=== PATIENT | male | born 1950 | race Caucasian/White ===

== ENCOUNTER 2024-05-21 10:31 | Outpatient (CLI) | payer MEDICARE, OTHER, SELFPAY ==
--- NOTE | ~2024-05-21 | CT_ITS ---
EXAMINATION: CT diagnostic chest w con DATE: 05/21/2024 11:12 INDICATION: Pneumonia TECHNIQUE: Computed tomography (CT) of the chest was performed with 100 mL Omnipaque-350 intravenous contrast. Additional 3D reconstructions utilizing coronal maximum intensity projection (MIP) were per formed. Automated exposure control and iterative reconstruction technique were employed. The dose-jay gth product was 477.36 mGy-cm. COMPARISON: None FINDINGS: Mild apical emphysema. Mild tree-in-bud and groundglass opacities at the periphery of a wedge-shaped region of consolidation in the anterior segment of the right upper lobe. Within the region of consoli dation is a 3.8 x 3.3 cm cavitary lesion with internal layering air-fluid level suspicious for pulmon luis abscess in the setting of pneumonia. Small calcified right lower lobe nodule along with calcified right hilar and mediastinal lymph nodes consistent with old granulomatous disease. No pulmonary mateo a or pleural effusion. Heart size is normal. At the right coronary artery calcific lesion. Prominent aortic valve calcification. Thoracic aorta is normal in caliber with no dissection. Although not perf ormed as a dedicated pulmonary embolism protocol there is good contrast opacification of the pulmonar y arteries demonstrating no pulmonary embolism. No pathologically enlarged thoracic diffuse lymphaden opathy. Diffuse hepatic steatosis. Mild thoracic spondylosis with bridging osteophytes at multiple le vels consistent with diffuse idiopathic skeletal hyperostosis (DISH). IMPRESSION: 1. Air-fluid level within a cavitary lesion within a region of consolidation in the intersegment righ t upper lobe concerning for pneumonia with secondary pulmonary abscess. Differential would include le ss likely malignancy and would recommend continued radiographic follow-up to document resolution or a ppropriate evolution. Reviewed, dictated and finalized at location B. IMPRESSION: 1. Air-fluid level within a cavitary lesion within a region of consolidation in the intersegment right upper lobe concerning for pneumonia with secondary pulm onary abscess. Differential would include less likely malignancy and would sofy mmend continued radiographic follow-up to document resolution or appropriate ev olution.
[2024-05-21 11:03] LABS: Estimated Glomerular Filt Rate > 60
== END 2024-05-21 10:32 | disposition home or self-care (01) ==
PROVIDERS: PCP Family Medicine; Visit Provider Nurse Practitioner Family
DX: J18.9 Pneumonia, unspecified organism (principal)
CPT/HCPCS: 71260; Q9967

== ENCOUNTER 2025-03-21 12:33 | Outpatient (CLI) | payer MEDICARE, OTHER, SELFPAY ==
--- OUTSIDE RECORDS SUMMARY | 2025-03-21 12:40 | XMS_ITS | Encounter Summary ---
Author Organization [facility] Address [facility] [place] [address] Care Team Providers Care Nitrate Operator Name Role Phone Wade Haq MD Primary Care Provider Unavailabl Christophe Gomez MD Unavailable Unavailab Murphy Rosario MD Primary Care Provider [phone] Roz Butler MD Primary Care Provider Travis Avila MD Unavailable [phone] Encounter Details Date Type Department Care Team (Late st Contact Info) Description 05/24/2016 Abstract [facility] [address] [place] [address] Christophe Vargas MD Social History Tobacco Use Types Packs/Day Years Used Date Smoking Tobacco: Former Sex and Gender Information Value Date Recorded Sex Assigned at Male 09/20/2024 2:13 PM [employer]AIAKO [employer]URA [employer]UAR[employer] Legal Sex Male 9:12 AM CDT Gender Identity Not on file Sexual Orientation Not on file documented as of this encounter Plan of Treatment Upcoming Encounters Date Type Department Care Team (Late st Contact Info) Description 12/22/2025 11:45 AM CDT Office Visit [facility] [place] [address] Travis Avila MD [address] [phone] documented as of this encounter Visit Diagnoses Not on filedocumented in this encounter Care Teams Nitrate Operator Relationship Specialty Start Date End Date Wade Haq MD PCP - General INTERNAL MEDICINE 05/03/16 06/06/16 Murphy Fox MD PCP - General FAMILY PRACTICE 06/07/16 08/08/19 Roz Butler MD PCP - General FAMILY PRACTICE 08/09/19 Christophe Vargas MD CARDIOVASCULAR DISEASE 05/03/16 08/31/19 Travis Avila MD [facility]. [id number] [place] [address] [employer] CARDIOVASCULAR DISEASE 08/19/19 documented as of this encounter
--- OUTSIDE RECORDS SUMMARY | 2025-03-21 12:41 | XMS_ITS | Patient Health Record ---
Author Organization [facility] dicine Address [address] [place] [address] Care Team Providers Care Swing Tender Name Role Phone Dr. Roz Butler Primary Care Provider [phone] Migration, Provider Unavailable Unavailable Allergies Allergen (clinical drug ingredient) Drug/Non Drug Allergy documented on EMR Reaction Allergy Type Onset Date Status Substance with penicillin structure and antibacterial mechanism of action (substance) Penicillins Unknown Drug Allergy 06/01/2021 Active Results Component Value Reference Range Flag Notes Sputum Culture and Gram Stai n Reviewed date:05/24/2024 12:00:00 AM Interpretation: Performing Lab: Notes/Report: C Sputum See Below CBC w/ Diff Reviewed date:07/14/2024 12:00:00 AM Interpretation: Performing Lab: Notes/Report: Baso Absolute 0.1 x10*3/mcL Basophil Auto 0.6 % Eos Absolute 0.1 x10*3/mcL Eosinophil Auto 0.7 % Hct 46.7 % Hgb 16.2 g/dL Lymph Absolute 1.7 x10*3/mcL Lymph Auto 20.6 % MCH 31.3 pg MCHC 34.7 g/dL MCV 90.2 fL [place] Absolute 0.5 x10*3/mcL [place] Auto 5.4 % MPV 8.0 fL Neutro Absolute 6.2 x10*3/mcL Neutro Auto 72.7 % Platelets 197 K/mcL RBC 5.18 x10*6/mcL RDW 14.7 % WBC 8.5 K/mcL Comprehensive Metabolic Pane l Reviewed date:07/14/2024 12:00:00 AM Interpretation: Performing Lab: Notes/Report: Albumin Lvl 3.8 g/dL Albumin/Globulin Ratio 1.2 Alk Phos 74 unit/L ALT 46 unit/L ANION GAP 7.8 mmol/L AST 41 unit/L Bilirubin Total 1.1 mg/dL BUN 21 mg/dL Calcium Lvl 9.3 mg/dL Chloride Lvl 106 mmol/L CO2 25 mmol/L Creatinine Lvl 1.03 mg/dL eGFR CKD-EPI 75 mL/min/1.73 m2 Glucose Lvl 128 mg/dL Potassium Lvl 4.0 mmol/L Protein Total 6.9 g/dL Sodium Lvl 139 mmol/L Hemoglobin A1c {Glycosylated } Reviewed date:07/14/2024 12:00:00 AM Interpretation: Performing Lab: Notes/Report: eAvg Glucose 105 mg/dL Hemoglobin A1c 5.3 % Lipid Panel {Chol, Trig, HDL , LDL} Reviewed date:07/14/2024 12:00:00 AM Interpretation: Performing Lab: Notes/Report: Chol/HDL 3 Cholesterol Total 107 mg/dL Coronary Risk 32 % HDL 34 mg/dL LDL N/A TRIG>400 mg/dL NON HDL CHOLESTEROL 73 mg/dL Triglycerides 409 mg/dL Magnesium Reviewed date:07/14/2024 12:00:00 AM Interpretation: Performing Lab: Notes/Report: Magnesium Lvl 1.9 mg/dL T4 Free Reviewed date:07/14/2024 12:00:00 AM Interpretation: Performing Lab: Notes/Report: T4 Free 0.69 ng/dL Thyroid Stimulating Hormone Reviewed date:07/14/2024 12:00:00 AM Interpretation: Performing Lab: Notes/Report: TSH 1.83 mcIU/mL Vitamin B12 Reviewed date:07/14/2024 12:00:00 AM Interpretation: Performing Lab: Notes/Report: Vitamin B12 Lvl 969 pg/mL Hepatitis C antibody Reviewed date:09/22/2024 05:30:42 PM Interpretation: Performing Lab: Notes/Report: Hep C Antibody negative Cologuard Reviewed date:09/22/2024 05:31:33 PM Interpretation: Performing Lab: Notes/Report: Cologuard negative Ultrasound : Abdomen Reviewed date:12/29/2024 10:54:50 AM Interpretation: Performing Lab: Notes/Report: X ray : Hand, left Reviewed date:12/16/2024 03:23:22 PM Interpretation: Performing Lab: Notes/Report: Chest X-ray PA and lateral Reviewed date:10/12/2024 04:30:48 PM Interpretation: Performing Lab: Notes/Report: Hemoglobin A1c {Glycosylated } Reviewed date:12/08/2024 09:37:05 PM Interpretation: Performing Lab: Notes/Report: Test Performed by: [place] [address] Career Services Representative: Willie Hernández DO Hemoglobin A1c 5.7 <=6.4 % Hemoglobin A1C < 5.7% = Normal 5.7-6.4% = Increased risk for future diabetes >=6.5% = Diabetes eAvg Glucose 117 <=117 mg/dL eAG Reference Range <117 mg/dL = Normal 117-137 mg/dL = Increased Risk For Future Diabetes >137 mg/dL = Diabetes T4 Free Reviewed date:12/08/2024 09:37:05 PM Interpretation: Performing Lab: Notes/Report: Test Performed by: [place] [address] Career Services Representative: Willie Hernández DO T4 Free 0.68 0.60-1.70 ng/dL CBC w Auto Diff Reviewed date:12/08/2024 09:37:05 PM Interpretation: Performing Lab: Notes/Report: Test Performed by: [place] [address] Career Services Representative: Willie Hernández DO WBC 5.8 4.0-11.7 K/mcL RBC 5.58 4.28-5.56 x10*6/mcL H Hgb 17.2 13.0-17.0 g/dL H Hct 50.2 38.1-48.9 % H MCV 89.9 83.4-98.1 fL MCH 30.8 27.0-34.2 pg MCHC 34.2 31.8-35.3 g/dL RDW 13.8 12.0-16.4 % Platelets 161 149-393 K/mcL MPV 7.8 7.0-11.0 fL Neutro Auto 61.2 45.3-79.0 % Lymph Auto 26.6 11.8-45.9 % [place] Auto 9.1 4.4-12.0 % Eosinophil Auto 2.2 0.0-6.3 % Basophil Auto 0.9 0.2-1.6 % Neutro Absolute 3.5 2.4-8.4 x10*3/mcL Lymph Absolute 1.5 0.8-3.7 x10*3/mcL [place] Absolute 0.5 0.3-1.1 x10*3/mcL Eos Absolute 0.1 0.0-0.5 x10*3/mcL Baso Absolute 0.1 0.0-0.1 x10*3/mcL Comprehensive Metabolic Pane l Reviewed date:12/08/2024 09:37:05 PM Interpretation: Performing Lab: Notes/Report: Test Performed by: [place] [address] Career Services Representative: Willie Hernández DO Glucose Lvl 106 74-109 mg/dL ADA risk stratification for diabetes <100 mg/dL = Normal 100-125 mg/dL = Increased risk for future diabetes >=126 mg/dL = Diabetes, if on more than one testing occasion BUN 18 7-25 mg/dL Creatinine Lvl 0.85 0.70-1.30 mg/dL eGFR CKD-EPI 90 >=90 mL/min/1.73 m2 The CKD-EPI equation is validated in individuals 18 years of age and older. It is less accurate in patients with extremes of muscle mass, restriction of dietary protein, ingestion of creatine, extra-renal metabolism of creatinine, or treatment with medications that affect renal tubular creatinine secretion. GFR Categories in Chronic Kidney Disease (CKD) GFR GFR (mL/min/1.73 Category: square meters): Interpretation: G1 90 or greater Normal or high* G2 60-89 Mild decrease* G3a 45-59 Mild to moderate decrease G3b 30-44 Moderate to severe decrease G4 15-29 Severe decrease G5 14 or less Kidney failure *In the absence of evidence of kidney damage, neither GFR category G1 nor G2 fulfill the criteria for CKD (Kidney Int Suppl 2013;3:1-150) Calcium Lvl 9.0 8.6-10.3 mg/dL Sodium Lvl 140 136-145 mmol/L Potassium Lvl 4.2 3.5-5.1 mmol/L Chloride Lvl 107 98-107 mmol/L CO2 28 21-31 mmol/L Anion Gap 5.2 <=16.0 mmol/L Alk Phos 80 34-104 unit/L Bilirubin Total 1.1 0.3-1.0 mg/dL H Albumin Lvl 4.1 3.5-5.2 g/dL Protein Total 7.0 6.4-8.9 g/dL Albumin/Globulin Ratio 1.4 1.1-2.5 ALT 61 7-52 unit/L H AST 47 13-39 unit/L H Lipid Panel {Chol, Trig, HDL , LDL} Reviewed date:12/08/2024 09:37:05 PM Interpretation: Performing Lab: Notes/Report: Test Performed by: [place] [address] Career Services Representative: Willie Hernández DO Cholesterol Total 114 <=199 mg/dL Triglycerides 189 0-149 mg/dL H Triglyceride Reference Ranges: <150 mg/dL Normal 150 - 199 mg/dL Borderline High 200 - 499 mg/dL High >=500 mg/dL Very High LDL 39 <=100 mg/dL LDL Optimal: <100 Near or above optimal: 100-129 Borderline high: 130-159 High: 160-189 Very high: >=190 Coronary heart disease risk factors should be considered when determining LDL goals. Please refer to ATPIII guidelines for further information. If LDL is not calculated, please call the lab to add on the direct LDL methodology, if desired. HDL 36 23-92 mg/dL Non HDL Cholesterol 77 <=130 mg/dL Chol/HDL 3 0-5 Coronary Risk 32 Coronary Risk Factor - Male Dangerous Risk: <7 % High Risk: 7-15 % Average Risk: 15-25 % Below Average Risk: 25-37 % Coronary Risk Factor - Female Dangerous Risk: <12 % High Risk: 12-18 % Average Risk: 18-27 % Below Average Risk: 27-40 % Magnesium Reviewed date:12/08/2024 09:37:05 PM Interpretation: Performing Lab: Notes/Report: Test Performed by: [place] [id number] Career Services Representative: Willie Hernández DO Magnesium Lvl 2.1 1.6-2.4 mg/dL Thyroid Stimulating Hormone Reviewed date:12/08/2024 09:37:05 PM Interpretation: Performing Lab: Notes/Report: Test Performed by: [place] [id number] Career Services Representative: Willie Hernández DO TSH 1.33 0.45-5.33 mcIU/mL Vitamin B12 Reviewed date:12/08/2024 09:37:05 PM Interpretation: Performing Lab: Notes/Report: Test Performed by: [address] [address] Career Services Representative: Willie Hernández DO Vitamin B12 Lvl 731 180-914 pg/mL Vitamin B12 Interpretation: Normal Range: 180-914 pg/mL Indeterminate: 140-180 pg/mL Deficient: <140 pg/mL PSA Annual Screening Reviewed date:12/08/2024 09:37:05 PM Interpretation: Performing Lab: Notes/Report: Test Performed by: [address] [id number] Career Services Representative: Willie Hernández DO PSA Total 1.54 0.00-4.00 ng/mL Ferritin Reviewed date:01/05/2025 09:54:38 PM Interpretation: Performing Lab: Notes/Report: Test Performed by: [address] [address] Career Services Representative: Willie Hernández DO Ferritin Lvl 266.1 23.9-336.2 ng/mL Reason For Referral Reason recent MBS Diagnosis 1 Abnormal barium swal low (R93.3) Referral Organization [facility] Referring Provider First Name Dr. 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 Please send referral for left hand pain. Diagnosis 1 Left hand pain (M79. 642) Referring Provider First Name Ricarda Referring Provider Last Name Smith Referring Provider Speciality Surgery Referred Organization [facility] Referred Provider Dr. Roz Butler Referred Address [address] [place] [address],[place], [place],[address], Referred Provider Specialty Family Medic ine General Notes Roxy Springer 11/30 03:29:54 PM CDT >not sent, corrected one placed and sent Referral Priority Routine Reason Pt has been seen pre viously by Dr Taylor office. Diagnosis 1 Left hand pain (M79. 642) Referral Organization [facility] Referring Provider First Name Dr. Courtney Referring Provider Last Name Solo [facility]erred Provider Ricarda Mtz Referred Provider Specialty Surgery General Notes Micaela Ribeiro 0 12/20/2024 02:51:27 PM CDT >Referral faxed to Dr. Mtz [phone], Mireille Balbuena 02/22/2025 12:13:16 PM CDT >consult note in chart. Referral Priority Routine Referral Appointment Date 02/15/2025 Medications Medication SIG (Take, Route, Frequency, Duration) Notes Start Date End Date Status Atorvastatin Calcium 20 MG Tablet 1 tablet Orally Once a day Active Vitamin [id number] Acid oral; Duration: 0 *Pick strength-form from [employer] for eRX* 06/02/2023 Active Levothyroxine Sodium 25 MCG Tablet 1 tablet in the morning on an empty stomach Orally daily; Duration: 90 days Active Losartan Potassium 100 MG Tablet 1 tablet Orally Once a day Active Aspirin Adult Low Strength 81 MG Tablet Delayed Release 1 Oral every day; Duration: 0 06/04/2021 Active Multivitamin oral; Duration: 0 *Pick strength-form from [employer] for eRX* 11/28/2022 Active Magnesium oral; Duration: 0 *Pick strength-form from [employer] for eRX* 06/02/2023 Active Immunizations Vaccine Route Administration Date Status Comme nts Influenza virus vaccine, quadrivalent (IIV4), split virus, 0.25 mL dosage Unknown 06/15/2020 Administered Source VFC Code: : Influenza, seasonal, injectable, preservative free, 3 yrs and above Unknown 07/16/2023 Administered ,sourcename : Historical information -from public agency Source VFC Code: : Influenza, seasonal, injectable, preservative free, 3 yrs and above Unknown 06/24/2024 Administered ,sourcename : Pharmacy Source VFC Code: : Toribio Covid-19 Vaccine Unknown 11/06/2020 Administered ,sourcename : Historical information -source unspecified Source VFC Code: : Moderna Covid-19 Vaccine 1st dose IM Intramuscular 07/13/2021 Administered Source VFC Code: : Moderna Covid-19 Vaccine 1st dose Unknown 04/09/2022 Administered ,sourcename : Historical information -from public agency Source VFC Code: : [employer] Covid-19 Vaccine 1st dose Unknown 06/24/2024 Administered ,sourcename : Pharmacy Source VFC Code: : Pneumococcal conjugate PCV 13 Unknown 01/20/2016 Administered Source VFC Code: : Pneumococcal polysaccharide PPV23 IM Intramuscular 06/26/2017 Administered Source VFC Code: : RSV-MAb (Respiratory syncytial virus immune globulin) IM Intramuscular 12/29/2023 Administered ,sourcename : New immunization record ,immstatus : Complete Td (adult), adsorbed Unknown 03/24/2007 Administered Source VFC Code: : Tdap IM Intramuscular 12/29/2023 Administered ,sourc ename : New immunization record ,immstatus : Complete Zoster Unknown 05/17/2014 Administered ,sourcename : Historical information -from other registry Source VFC Code: : Zoster IM Intramuscular 11/28/2022 Administered Source VFC Code: : Zoster IM Intramuscular 02/05/2023 Administered ,sourc ename : New immunization record ,immstatus : Complete Social History Tobacco Use: Social History Observation Description Date Details (start date - stop date) Former Smoker NA - NA Social History Household: Social Info Question Answer Notes Household Marital status: Tobacco Use: Social Info Question Answer Notes Tobacco Control (Standard) Tobacco use: Former smoker Additional Details Category Social Info Options Details Miscellaneous: Occupation: works full-ti [employer] Problems Problem Type SNOMED Code ICD Code Onset Dates Problem Status W/U Status Risk Notes Problem 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, 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) Active confirmed Problem Benign neoplasm of peripheral nerve (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) Benign neoplasm of peripheral nerves and autonomic nervous system, 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 confirmed Problem Periodic limb movement disorder (776835000) Periodic limb movement disorder (G47.61) Active confirmed Problem Aphasia (66947896) Aphasia (R47.01) Active confirmed Problem Hyperglycemia (50039553) Hyperglycemia, unspecified (R73.9) Active confirmed Problem Screening for malignant neoplasm of colon (474043059) Encounter for screening for malignant neoplasm of colon (Z12.11) 09/21/2 022 Active confirmed Problem Screening for malignant neoplasm of prostate (266308932) Encounter for screening for malignant neoplasm of prostate (Z12.5) Active confirmed Problem Hyperlipidemia (86943156) Hyperlipidemia, unspecified (E78.5) Inactive confirmed Problem Body mass index 30.00 to 34.99 (514484614892092) Body mass index (BMI) 34.0-34.9, adult (Z68.34) Active confirmed Problem Obese class II (993505707314469) Body mass index (BMI) 35.0-35.9, adult (Z68.35) Active confirmed Problem Imaging result abnormal (067330704) Abnormal findings on diagnostic imaging of other specified body structures (R93.89) Active confirmed Problem Personal risk factor (713924308) Other specified personal risk factors, not elsewhere classified (Z91.89) Active confirmed Problem History of cerebrovascular accident without residual deficits (762153805) Personal history of transient ischemic attack (TIA), and cerebral infarction without residual deficits (Z86.73) Active confirmed Problem Vaccination given (708108227) Encounter for immunization (Z23) Active confirmed Problem Problem, abnormal examination (04508538) Encounter for general adult medical examination with abnormal findings (Z00.01) Active confirmed Problem Adult health examination (213906119) Encounter for general adult medical examination without abnormal findings (Z00.00) Active confirmed Problem Thyroid function tests abnormal (363864797) Abnormal results of thyroid function studies (R94.6) Active confirmed Problem Histopathology finding (361935204) Unspecified abnormal finding in specimens from other organs, systems and tissues (R89.9) Active confirmed Problem Laboratory test result abnormal (372708335) Abnormal levels of other serum enzymes (R74.8) Active confirmed Problem Abnormal weight loss (826829893) Abnormal weight loss (R63.4) Active confirmed Problem Polyphagia (933998811) Polyphagia (R63.2) Active confirmed Problem Other specified symptoms and signs involving the circulatory and respiratory systems (R09.89) Active confirmed Problem Contracture of palmar fascia (705098479) 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 confirmed Problem Joint pain (78617796) Pain in unspecified joint (M25.50) Active confirmed Problem Abscess of lung with pneumonia (894958744) Abscess of lung with pneumonia (J85.1) Active confirmed Problem Allergic rhinitis (22445367) Allergic rhinitis, unspecified (J30.9) Active confirmed Problem Pneumonia (010440753) Pneumonia, unspecified organism (J18.9) Active confirmed Problem Aortic aneurysm (82853780) Aortic aneurysm of unspecified site, without rupture (I71.9) Active confirmed Problem Cerebrovascular disease (69618213) Cerebrovascular disease, unspecified (I67.9) Active confirmed Problem Carotid artery occlusion (336444718) Occlusion and stenosis of unspecified carotid artery (I65.29) Active confirmed Problem Cerebral infarction (924998771) Cerebral infarction, unspecified (I63.9) Active confirmed Problem Heart disease (disorder) (50228245) Other ill-defined heart diseases (I51.89) Active confirmed Problem Aortic valve disorder (7649759) Nonrheumatic aortic (valve) stenosis (I35.0) Active confirmed Problem Atherosclerotic heart disease of ione coronary artery without angina pectoris (502580937077434) 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) Active confirmed Problem Essential hypertension (25918169) Essential (primary) hypertension (I10) Active confirmed Problem Otitis externa (2761987) Otitis externa in other diseases classified elsewhere, unspecified ear (H62.40) Active confirmed Problem Carpal tunnel syndrome (44068572) Carpal tunnel syndrome, right upper limb (G56.01) Active confirmed Problem Obstructive sleep apnea syndrome (disorder) (63149993) Obstructive sleep apnea (adult) (pediatric) (G47.33) Active confirmed Problem Hypomagnesemia (210478088) Hypomagnesemia (E83.42) Active confirmed Problem Mixed hyperlipidemia (382102325) Mixed hyperlipidemia (E78.2) Active confirmed Problem Obesity (705174011) Obesity, unspecified (E66.9) 023 Active confirmed Problem Vitamin B deficiency (51406070) Vitamin B deficiency, unspecified (E53.9) Active confirmed Problem Hypothyroidism (39653095) Hypothyroidism, unspecified (E03.9) Active confirmed Problem Secondary polycythemia (56964287) Secondary polycythemia (D75.1) Active confirmed Problem Stenosis of left vertebral artery (762737124) Stenosis of left vertebral artery (I65.02) Active confirmed CTA neck 2022 - moderate focal stenosis at origin Problem Atherosclerosis of both carotid arteries (658541064791747) Atherosclerosis of both carotid arteries (I65.23) Active confirmed CTA neck 2022 up to 40% on left. Vital Signs Heart Rate 83 /min 12/16/2024 Temperature 96.5 degrees Fahrenheit 12/16/2024 Respiratory Rate 20 /min 09/23/2024 Height-cm 174.75 cm 12/16/2024 Blood pressure diastolic 88 mm Hg 12/16/2024 Oximetry 97 % 12/16/2024 Weight-kg 106.14 kg 12/16/2024 Height 68.80 in 12/16/2024 Blood pressure systolic 142 mm Hg 12/16/2024 Weight 234 lbs 12/16/2024 BMI 34.75 kg/m2 12/16/2024 Encounters Encounter Location Date Provider Diagnosis [address] [address] 04/14/2024 Dr. Roz Butler Essential (primary) hypertension I10 ; Hypothyroidism, unspecified E03.9 ; Pain in left hand M79.642 ; Polyphagia R63.2 and Carpal tunnel syndrome, right upper limb G56.[address] [address] 05/10/2024 Dr. Roz Butler Pneumonia, unspecified organism J18.9 ; Allergic rhinitis, unspecified J30.9 ; Acute sinusitis, unspecified J01.90 and Abnormal weight loss R63.[address] [address] 05/18/2024 Provider Migration Cough, unspecified R05.[address] [address] 05/20/2024 Provider Migration Unspecified abnormal finding in specimens from other organs, systems and tissues R89.9 ; Abnormal findings on diagnostic imaging of other specified body structures R93.89 and Pneumonia, unspecified organism J18.[address] [address] 05/21/2024 Dr. Roz Butler Cough, unspecified R05.9 ; Pneumonia, unspecified organism J18.9 ; Abscess of lung with pneumonia J85.1 and Essential (primary) hypertension I10 [address] [address] 06/04/2024 Provider Migration Pneumonia, unspecified organism J18.[address] [address] 06/23/2024 Provider Migration Abnormal findings on diagnostic imaging of other specified body structures R93.89 and Pneumonia, unspecified organism J18.[address] [address] 06/24/2024 Provider Migration [address] [address] 07/13/2024 Provider Migration Hypomagnesemia E83.42 ; Essential (primary) hypertension I10 ; Vitamin B deficiency, unspecified E53.9 ; Mixed hyperlipidemia E78.2 and Hyperglycemia, unspecified R73.[address] [address] 07/15/2024 Provider Migration Abscess of lung with pneumonia J85.1 ; Other specified symptoms and signs involving the circulatory and respiratory systems R09.89 ; Abnormal weight loss R63.4 and Pneumonia, unspecified organism J18.[address] [address] 07/19/2024 Dr. Roz Butler Mixed hyperlipidemia E78.2 ; Other specified personal risk factors, not elsewhere classified Z91.89 ; Pneumonia, unspecified organism J18.9 ; Nonrheumatic aortic (valve) stenosis I35.0 ; Personal history of transient ischemic attack (TIA), and cerebral infarction without residual deficits Z86.73 ; Aortic aneurysm of unspecified site, without rupture I71.9 ; Hypothyroidism, unspecified E03.9 ; Cerebrovascular disease, unspecified I67.9 ; Essential (primary) hypertension I10 ; Obstructive sleep apnea (adult) (pediatric) G47.33 and Other ill-defined heart diseases I51.[address] [address] 09/23/2024 Dr. Roz Butler Essential (primary) hypertension I10 ; At risk for aspiration Z91.89 ; Other dysphagia R13.19 and Cough, unspecified R05.[address] [address] 12/16/2024 Dr. Roz Butler Encounter for general adult medical examination without abnormal findings Z00.00 ; Stenosis of left vertebral artery I65.02 ; Atherosclerosis of both carotid arteries I65.23 ; Left hand pain M79.642 ; Polycythemia D75.1 ; Elevated liver enzymes R74.8 ; Hypothyroidism, unspecified E03.9 ; Obstructive sleep apnea (adult) (pediatric) G47.33 ; Essential (primary) hypertension I10 ; Nonrheumatic aortic (valve) stenosis I35.0 ; Cerebrovascular disease, unspecified I67.9 ; Prediabetes R73.03 ; Mixed hyperlipidemia E78.2 and Colon cancer screening Z12.[address] [address] 07/31/2024 Provider Migration [address] [address] 08/01/2024 Provider Migration [address] [address] 08/21/2024 Dr. Roz Butler [address] [address] 09/09/2024 Dr. Roz Butler Aspiration pneumonia of both lungs, unspecified aspiration pneumonia type, unspecified part of lung J69.[address] [address] 09/28/2024 Dr. Roz Butler [address] [address] 12/06/2024 Dr. Rzo Butler Hypothyroidism, unspecified E03.9 ; Vitamin B deficiency, unspecified E53.9 ; Mixed hyperlipidemia E78.2 ; Hypomagnesemia E83.42 ; Hyperglycemia, unspecified R73.9 and Encounter for screening for malignant neoplasm of prostate Z12.[address] [address] 12/30/2024 Dr. Roz Butler Enlarged liver R16.[address] [address] 01/05/2025 Dr. Roz Butler Assessments Encounter Date Diagnosis (ICD Code) Assessment Notes Treatment Notes Treatment Clinical Notes Section Notes 12/06/2024 Hypothyroidism, unspecified (ICD-10 - E03.9) 12/30/2024 Enlarged liver (ICD-10 - R16.0) 09/23/2024 At risk for aspiration (ICD-10 - Z91.89) 12/16/2024 Stenosis of left vertebral artery (ICD-10 - I65.02) CTA neck 2022 - moderate focal stenosis at origin on medication for risk reduction suggest we consider repeat every 2 years 12/06/2024 Vitamin B deficiency, unspecified (ICD-10 - E53.9) 12/16/2024 Encounter for general adult medical examination without abnormal findings (ICD-10 - Z00.00) AWV Instructions The patient's health risk assessment was reviewed during this visit. The patient's chart was reviewed and updated See scanned images from paperwork reviewed and completed today The following topics have been addressed/discuss ed at today's visit: All recommended screening services (as applicable) including infectious diseases, osteoporosis, diabetes and/or diabetes complications, glaucoma, cognitive impairment, hearing impairment, alcohol misuse, cancer screening Fall risk assessment Alcohol misuse Counseling (if applicable) Tobacco Cessation Counseling (if applicable) Immunizations Vital Signs End of Life Care Patient was provided with a written copy of the care plan from today's visit to include topics of Fall prevention, Nutrition, Physical activity, Tobacco-use cessation, Social engagement, Weight loss, Cognition. - Depression screener score of 2, indicating minimal symptoms. Sleep issues and tiredness attributed to recent -related activities. - Monitor mood changes and report if symptoms worsen. -5 mins spent reviewing and discussing PHQ-9 Declined POA, living will paperwork, declined POLST form Preventive Care - Due for Cologuard test in June. - Order Cologuard test for June. - Continue with regular vaccinations, including flu and COVID-19 boosters as recommended. 04/14/2024 Hypothyroidism, unspecified (ICD-10 - E03.9) 04/14/2024 Carpal tunnel syndrome, right upper limb (ICD-10 - G56.01) 04/14/2024 Essential (primary) hypertension (ICD-10 - I10) 04/14/2024 Pain in left hand (ICD-10 - M79.642) 04/14/2024 Polyphagia (ICD-10 - R63.2) 05/10/2024 Acute sinusitis, unspecified (ICD-10 - J01.90) 05/10/2024 Pneumonia, unspecified organism (ICD-10 - J18.9) 05/10/2024 Allergic rhinitis, unspecified (ICD-10 - J30.9) 05/10/2024 Abnormal weight loss (ICD-10 - R63.4) 05/18/2024 Cough, unspecified (ICD-10 - R05.9) 05/20/2024 Pneumonia, unspecified organism (ICD-10 - J18.9) 05/20/2024 Unspecified abnormal finding in specimens from other organs, systems and tissues (ICD-10 - R89.9) 05/20/2024 Abnormal findings on diagnostic imaging of other specified body structures (ICD-10 - R93.89) 05/21/2024 Essential (primary) hypertension (ICD-10 - I10) 05/21/2024 Pneumonia, unspecified organism (ICD-10 - J18.9) 05/21/2024 Abscess of lung with pneumonia (ICD-10 - J85.1) 05/21/2024 Cough, unspecified (ICD-10 - R05.9) 06/04/2024 Pneumonia, unspecified organism (ICD-10 - J18.9) 06/23/2024 Pneumonia, unspecified organism (ICD-10 - J18.9) 06/23/2024 Abnormal findings on diagnostic imaging of other specified body structures (ICD-10 - R93.89) 07/13/2024 Vitamin B deficiency, unspecified (ICD-10 - E53.9) 07/13/2024 Mixed hyperlipidemia (ICD-10 - E78.2) 07/13/2024 Hypomagnesemia (ICD-10 - E83.42) 07/13/2024 Essential (primary) hypertension (ICD-10 - I10) 07/13/2024 Hyperglycemia, unspecified (ICD-10 - R73.9) 07/15/2024 Pneumonia, unspecified organism (ICD-10 - J18.9) 07/15/2024 Abscess of lung with pneumonia (ICD-10 - J85.1) 07/15/2024 Other specified symptoms and signs involving the circulatory and respiratory systems (ICD-10 - R09.89) 07/15/2024 Abnormal weight loss (ICD-10 - R63.4) 07/19/2024 Hypothyroidism, unspecified (ICD-10 - E03.9) 07/19/2024 Mixed hyperlipidemia (ICD-10 - E78.2) 07/19/2024 Obstructive sleep apnea (adult) (pediatric) (ICD-10 - G47.33) 07/19/2024 Essential (primary) hypertension (ICD-10 - I10) 07/19/2024 Nonrheumatic aortic (valve) stenosis (ICD-10 - I35.0) 07/19/2024 Other ill-defined heart diseases (ICD-10 - I51.89) 07/19/2024 Cerebrovascular disease, unspecified (ICD-10 - I67.9) 07/19/2024 Aortic aneurysm of unspecified site, without rupture (ICD-10 - I71.9) 07/19/2024 Pneumonia, unspecified organism (ICD-10 - J18.9) 07/19/2024 Personal history of transient ischemic attack (TIA), and cerebral infarction without residual deficits (ICD-10 - Z86.73) 07/19/2024 Other specified personal risk factors, not elsewhere classified (ICD-10 - Z91.89) 09/09/2024 Aspiration pneumonia of both lungs, unspecified aspiration pneumonia type, unspecified part of lung (ICD-10 - J69.0) 09/23/2024 Essential (primary) hypertension (ICD-10 - I10) controlled, no changes suggested. 09/23/2024 Other dysphagia (ICD-10 - R13.19) continue ST until maximized. he can tell with soreness it's helping some. 12/06/2024 Mixed hyperlipidemia (ICD-10 - E78.2) 12/16/2024 Atherosclerosis of both carotid arteries (ICD-10 - I65.23) CTA neck 2022 up to 40% on left. risk reduction through medications including aspirin and statin and BP control. no changes 12/16/2024 Left hand pain (ICD-10 - M79.642) Hand Pain - Persistent hand pain since August, possibly due to injury while chipping ice. - Order a hand X-ray to assess for potential injury. - Evaluate for possible fracture or soft tissue injury. 12/06/2024 Hypomagnesemia (ICD-10 - E83.42) 09/23/2024 Cough, unspecified (ICD-10 - R05.9) CXR is clear now from any infiltrate. He is canceling his appt with pulm 12/06/2024 Hyperglycemia, unspecified (ICD-10 - R73.9) 12/16/2024 Polycythemia (ICD-10 - D75.1) No longer seeing hematology - no obvious cause was found. Monitor 12/16/2024 Elevated liver enzymes (ICD-10 - R74.8) Liver Enzyme Elevation - Elevated liver enzymes noted, possibly due to gallbladder issues or fatty liver. Previous CAT scan in 2018 showed fatty liver. - Order an ultrasound of the liver to investigate elevated liver enzymes and potential gallbladder issues. - Consider possible gallbladder sludge or stones as a cause for elevated liver enzymes. 12/06/2024 Encounter for screening for malignant neoplasm of prostate (ICD-10 - Z12.5) 12/16/2024 Hypothyroidism, unspecified (ICD-10 - E03.9) no change to low dose synthroid. thyroid labs are normal. 12/16/2024 Obstructive sleep apnea (adult) (pediatric) (ICD-10 - G47.33) continue wearing CPAP. 12/16/2024 Essential (primary) hypertension (ICD-10 - I10) borderline today, typoically better controlled. No change in regimen. 12/16/2024 Nonrheumatic aortic (valve) stenosis (ICD-10 - I35.0) reviewed recent echo from 2024 in [facility] system. No ascending aortic aneurysm noted. Previously was 4cm,. 12/16/2024 Cerebrovascular disease, unspecified (ICD-10 - I67.9) continue medications for stroke reduction including aspirin. 12/16/2024 Prediabetes (ICD-10 - R73.03) Prediabetes - Very early prediabetes, with improvement noted. - Continue monitoring and maintain current lifestyle. - Encourage regular physical activity and dietary modifications to prevent progression. 12/16/2024 Mixed hyperlipidemia (ICD-10 - E78.2) continue statin check labs with checku pin 6 months 12/16/2024 Colon cancer screening (ICD-10 - Z12.11) 09/23/2024 Other Speech and Swallowing Difficulties - Likely related to a previous stroke in 2013, causing subtle muscle weakness affecting swallowing mechanics. Improvement noted with speech therapy exercises. - Continue with speech therapy exercises to strengthen tongue and throat muscles. Follow-up with speech therapy on Friday. - Monitor for any further improvement in swallowing and reduction in pneumonia occurrences. Pneumonia - Previous pneumonia likely not caused by pneumococcal bacteria, as patient is vaccinated. Chronic scarring in the right mid-lung is stable. - No further antibiotics needed. Continue monitoring lung health. Next checkup scheduled for December 16, 2024. - Consider a breathing test if future concerns arise regarding lung function. Vaccinations - Up-to-date with flu and pneumonia vaccinations. Pneumonia vaccination provides protection against pneumococcal pneumonia. - No additional pneumonia vaccination needed. Appointments - Follow-up appointment on December 16, 2024 12/16/2024 Other Aneurysm - Aneurysm noted in records; confirmation needed. - Verify records and confirm presence of aneurysm. - Review previous imaging studies to ensure accurate diagnosis. Plan Of Treatment Pending Test Test Name Order Date Cologuard 12/16/2024 Next Appt Details Provider Name:Dr. Roz arceo, 06/08/2025 01:00:00 PM, [facility], [place], [address], [id number] Provider Name:Dr. Roz arceo, 12/22/2025 10:30:00 AM, [address], [place], [address], [id number] Insurance Providers Payer Name Payer Address Payer Phone Subscriber Number Group Number Insured Name Patient Relationship to Insured Coverage Start Date Coverage End Date NGS Medicare RHC [address] [place] [phone] [id number] Cristhian Holt Self - patient is the insured 2 [place] [facility] [place] [address] [id number] Plan N Cristhian Holt Self - patient is the insured 2 NGS Medicare B [address] [place] [address] [id number] Cristhian Holt Self - patient is the insured 2 Medical (General) History Medical History History ICD Code Superficial mycosis, unspecified B36.9 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, unspecified D36.10 Secondary polycythemia D75.1 Hypothyroidism, unspecified E03.9 Vitamin B deficiency, unspecified E53.9 Obesity, unspecified E66.9 Mixed hyperlipidemia E78.2 Hypomagnesemia E83.42 Obstructive sleep apnea (adult) (pediatr ic) G47.33 Periodic limb movement disorder G47.61 Carpal tunnel syndrome, right upper limb G56.01 Essential (primary) hypertension I10 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 I25.10 Nonrheumatic aortic (valve) stenosis I35 .0 Cerebral infarction, unspecified I63.9 Occlusion and stenosis of unspecified ca rotid artery I65.29 Aortic aneurysm of unspecified site, wit hout rupture I71.9 Hyperglycemia, unspecified R73.9 Body mass index (BMI) 34.0-34.9, adult Z 68.34 Abnormal findings on diagnostic imaging of other specified body structures R93.89 Body mass index (BMI) 35.0-35.9, adult Z 68.35 Other specified personal risk factors, n ot elsewhere classified Z91.89 Personal history of transien t ischemic attack (TIA), and cerebral infarction without residual deficits Z86.73 Encounter for immunization Z23 Encounter for screening for malignant ne oplasm of prostate Z12.5 Otitis externa in other diseases classif ied elsewhere, unspecified ear H62.40 Other ill-defined heart diseases I51.89 Cerebrovascular disease, unspecified I67 .9 Pneumonia, unspecified organism J18.9 Allergic rhinitis, unspecified J30.9 Abscess of lung with pneumonia J85.1 Pain in unspecified joint 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 Other specified symptoms and signs involving the circulatory and respiratory systems R09.89 Aphasia R47.01 Polyphagia R63.2 Abnormal weight loss R63.4 Abnormal levels of other serum enzymes R 74.8 Unspecified abnormal finding in specimens from other organs, systems and tissues R89.9 Abnormal results of thyroid function santos dies R94.6 Encounter for general adult medical exam ination without abnormal findings Z00.00 Encounter for general adult medical exam ination with abnormal findings Z00.01 Encounter for screening for malignant ne oplasm of colon Z12.11 Surgical History Surgery Date(Month/Year) hand surgery ,notes : left hand contract ure Tonsil/adenoidectomy 1954 back surgery ,notes : disc 1979
--- OUTSIDE RECORDS SUMMARY | 2025-03-21 12:41 | XMS_ITS | Clinical Summary ---
Author Organization [facility] Address [facility] [place] [address] Care Team Providers Care Customer Servicer Name Role Phone Cherise Botello MD Primary Care Provider Travis Avila MD Unavailable [phone] Allergies Active Allergy Reactions Criticality Noted Date Comments Penicillins Syncope 05/24/2016 Medications aspirin EC 81 MG EC tablet Take 1 tablet (81 mg total) by mouth daily. Active atorvastatin 20 MG tablet Take 1 tablet (20 mg total) by mouth daily. Active magnesium oxide 250 MG tablet Take 1 tablet (250 mg total) by mouth daily. Active losartan (COZAAR) 100 MG tablet Take 1 tablet (100 mg total) by mouth daily. 10/02/2023 Active MULTIPLE MINERALS-VITAMIN S OR Take 1 tablet by mouth daily. Active vitamin B-12 (CYANOCOBALAMIN) (CYANOCOBALAMIN) 1000 mcg tablet Take 1 tablet (1,000 mcg total) by mouth daily. Active levothyroxine (SYNTHROID) 25 MCG tablet Take 1 tablet (25 mcg total) by mouth daily. Active Active Problems Problem Noted Date Diagnosed Date Ascending aortic aneurysm 10/18/2021 Degenerative tear of left medial meniscus 2020 Chronic pain of left knee 08/07/2020 CVA (cerebral vascular accident) (CMS/HCC HHS/HC C) 05/18/2014 Carotid artery disease Hyperlipidemia Hypertension Essential hypertension Aortic stenosis Encounters Date Type Department Care Team Description 12/29/2024 7:59 AM CDT - 12/29/2024 11:59 PM CDT Hospital Encounter [facility] Ultrasound [address] [place] [address] Cherise Botello MD Discharge Disposition: Home or Self Care (Routine Discharge) 12/29/2024 Travel from Last 3 Months Family History Medical History Relation Comments Hypertension Father Cancer Mother pancreatic Heart Attack Paternal Grandfather Relation Status Comments Father (Age 89) Mother (Age 85) Paternal Grandfather (Age 75) Social History Tobacco Use Types Packs/Day Years Used Date Smoking Tobacco: Former Cigarettes 1 37 1 966 - 2002 Smokeless Tobacco: Never Alcohol Use Standard Drinks/Week Comments No 0 (1 standard drink = 0.6 oz pur e alcohol) AUDIT-C Answer Date Recorded Frequency of Alcohol Consumption Never 08/27/2019 Average Number of Drinks Not on file 019 Frequency of Binge Drinking Not on file 08/02 PHQ-2 Answer Date Recorded PHQ-2 Score - If the patient scores above 3, please move on to questions 3-9 0 08/07/2020 Sex and Gender Information Value Date Recorded Sex Assigned at Male 09/20/2024 2:13 PM PRINCIPAL PROCESS ENGINEER Legal Sex Male 9:12 AM CDT Gender Identity Not on file Sexual Orientation Not on file Occupation Industry Job Start Date Job End Date [employer] Not on file Not on file Not on file Last Filed Vital Signs Vital Sign Reading Time Taken Comments Blood Pressure 130/72 12/16/2024 11:40 AM CDT Pulse 64 12/16/2024 11:40 AM CDT Temperature 36 C (96.8 F) 10/02/2020 8:54 AM PRINCIPAL PROCESS ENGINEER Respiratory Rate 18 12/16/2024 11:40 AM CDT Oxygen Saturation 95% 12/16/2024 11:40 AM CDT Inhaled Oxygen Concentration - - Weight 105.7 kg (233 lb) 12/16/2024 11:40 AM CDT Height 176.5 cm (5' 9.5) 12/16/2024 11:40 AM CD T Body Mass Index 33.91 12/16/2024 11:40 AM CDT Plan of Treatment Upcoming Encounters Date Type Department Care Team (Late st Contact Info) Description 12/22/2025 11:45 AM CDT Office Visit [facility] [address] [place] [id number] Travis Avila MD [address] [phone] Health Maintenance Due Date Last Done Comments Annual Medicare Wellness Visit 2013 Zoster Vaccines (2 of 3) 04/02/2023 023, 11/28/2022, 05/09/2014 RSV Immunization or 60+ Years (1 - 1-dose 75+ series) 2023 COVID-19 Vaccine ( - season) 2024 06/24/2024, 04/09/2022, 07/13/2021, Additional history exists PHQ-2 (Physician [place]) 09/01/2024 DTaP, Tdap and Td Vaccines (2 - Td or Tdap) 12/28/2033 12/29/2023, 03/24/2007 Hepatitis C Completed 08/01/2014 Pneumococcal Vaccine: 50+ Years Completed 06/26/2017, 01/20/2016 Meningococcal B Vaccine Aged Out No l onger eligible based on patient's age to complete this topic Meningococcal Vaccine Aged Out No sharona wellington eligible based on patient's age to complete this topic RSV Immunizations Under 20 Months Aged Out No longer eligible based on patient's age to complete this topic Procedures Procedure Name Priority Date/Time Associated Diagnosis Comments US ABD LIMITED Routine 12/29/2024 8:33 AM CDT Elevated liver enzymes HEPATITIS PANEL,ACUTE Routine 08/01/2014 7:26 AM PRINCIPAL PROCESS ENGINEER from Last 3 Months or Most Recently Relevant to Health Maintenance Results * US ABD LIMITED (12/29/2024 8:33 AM CDT) Anatomical Region Laterality Modality Abdomen Computed Tomogra phy 12/29/2024 8:55 AM CDT Impressions 12/29/2024 9:00 AM CDT IMPRESSION: 1.Hepatic steatosis with mild hepatomegaly Ordered By: CHERISE BOTELLO Interpreted By: Ander Benson MD, 12/29/2024 8:55 AM Narrative 12/29/2024 9:00 AM CDT [address] [place] [address] ULTRASOUND OF THE RIGHT UPPER QUADRANT OF THE ABDOMEN Clinical history: Elevated LFTs High-resolution grayscale and color Doppler ultrasound was performed over the right upper quadrant of the abdomen. The obtained images are reviewed without prior studies available for comparison. FINDINGS: The overall size of the liver is 19.4 cm in the midclavicular line which is mildly moderately enlarged and the echogenicity is homogeneous but diffusely increased from normal throughout consistent with diffuse hepatic steatosis. Normal color flow and Doppler waveforms were evident in the hepatic veins and portal veins. The gallbladder is normally distended. No stones are observed within the lumen. . The common bile duct measures 3.7 mm. Visualized portion of pancreas appears normal. Procedure Note Ander Benson MD - 12/29/[address] [place] [address] ULTRASOUND OF THE RIGHT UPPER QUADRANT OF THE ABDOMEN Clinical history: Elevated LFTs High-resolution grayscale and color Doppler ultrasound was performed overthe right upper quadrant of the abdomen. The obtained images are reviewedwithout prior studies available for comparison. FINDINGS: The overall size of the liver is 19.4 cm in the midclavicular line whichis mildly moderately enlarged and the echogenicity is homogeneous butdiffusely increased from normal throughout consistent with diffuse hepaticsteatosis. Normal color flow and Doppler waveforms were evident in thehepatic veins and portal veins. The gallbladder is normally distended. No stones are observed within thelumen. . The common bile duct measures 3.7 mm. Visualized portion of pancreas appears normal. IMPRESSION: 1.Hepatic steatosis with mild hepatomegaly Ordered By: CHERISE BOTELLO Interpreted By: Ander Benson MD, 12/29/2024 8:55 AM us Cherise Botello MD ULTRASOUND Final Result * HEPATITIS PANEL,ACUTE (08/01/2014 7:26 AM PRINCIPAL PROCESS ENGINEER) HAV IGM NON-REACTIVE NON-REACT MINNA [facility] TO EPIC CONVERSION HEPATITIS B SURFACE AG NON-REACTIVE NON-REACT MINNA [facility] TO EP[facility] CONVERSION HEP B CORE IGM NON-REACTIVE NON-REACT MINNA [facility] TO [facility] CONVERSION HEPATITIS C AB NON-REACTIVE NON-REACT MINNA [facility] TO EPIC CONVERSION SIGNAL TO CUTOFF 0.02 <1.00 [facility] TO [facility] CONVERSION Comment:TESFAYE FRANCO DO, MPH REPORT STATUS Not required [facility] TO EPIC CONVERSION Comment: THIS TEST WAS PERFORMED AT [facility] [id number] [place] [id number] 08/01/2014 7:26 AM PRINCIPAL PROCESS ENGINEER 08/01/2014 7:26 AM PRINCIPAL PROCESS ENGINEER Narrative [facility] TO EPIC CONVERSION - 08/05/2014 8:33 AM PRINCIPAL PROCESS ENGINEER This lab was migrated from [facility] and may be missing annotations or result text, please check the Media tab for the most complete results. us Anibal Corona MD LABORATORY Final Resu lt Performing Organization Address City/State/[facility] Co de Phone Number [facility] TO EPIC CONVERSION from Last 3 Months or Most Recently Relevant to Health Maintenance Insurance MEDICARE MEDICARE [facility] Care Teams Customer Servicer Relationship Specialty Start Date End Date Cherise Botello MD PCP - General FAMILY PRACTICE 08/09/19 Travis Avila MD [facility] [address] [place] [address] Jim Dining Room Attendant CARDIOVASCULAR DISEASE 08/19/19
--- OUTSIDE RECORDS SUMMARY | 2025-03-21 12:41 | XMS_ITS | Encounter Summary ---
Author Organization [facility] Address [facility] [place] [address] Care Team Providers Care Black Top Spreader Machine Operator Name Role Phone Christophe Vargas MD Unavailable Unavailab Murphy Rosario MD Primary Care Provider [phone] Roz Butler MD Primary Care Provider Travis Avila MD Unavailable [phone] Encounter Details Date Type Department Care Team (Late st Contact Info) Description 01/14/[address] 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 file Not on file Not on file documented as of this encounter Plan of Treatment Upcoming Encounters Date Type Department Care Team (Late st Contact Info) Description 12/22/2025 11:45 AM CDT Office Visit [facility] [place] [address] Travis Avila MD [address] [address] documented as of this encounter Visit Diagnoses Not on filedocumented in this encounter Care Teams Black Top Spreader Machine Operator Relationship Specialty Start Date End Date Murphy Fox MD PCP - General FAMILY PRACTICE 06/07/16 08/08/19 Roz Butler MD PCP - General FAMILY PRACTICE 08/09/19 Christophe Vargas MD CARDIOVASCULAR DISEASE 05/03/16 08/31/19 Travis Avila MD [facility]. [facility] [address] [place] [address] [place] Legislative Director CARDIOVASCULAR DISEASE 08/19/19 documented as of this encounter
--- OUTSIDE RECORDS SUMMARY | 2025-03-21 12:41 | XMS_ITS | Clinical Summary ---
Author Organization [facility] Address [address] [place] [address] Phone Care Team Providers Care Supervisor Rolling Room Name Role Phone Roz Butler MD Primary Care Provider Allergies Active Allergy Reactions Criticality Noted Date Comments Penicillins Other (see Comments) 02/15/2016 Passes out Medications lisinopril (PRINIVIL, ZESTRIL) 20 MG Tablet Take 20 mg by mouth daily. Active atorvastatin (LIPITOR) 40 MG Tablet Take 20 mg by mouth daily. Active clopidogrel (PLAVIX) 75 MG Tablet Take 75 mg by mouth daily. Active Aspirin (ECOTRIN PO) Take 81 mg by mouth. Active Active Problems Patient Care Coordination No te Formatting of this note migh t be different from the original. ~~ OF January 04, 2019 PATIENT DOES NOT QUALIFY FOR OCM~~NO DX/TX~~ Problem Noted Date Diagnosed Date Lesion of spleen 02/29/2016 Polycythemia 02/15/2016 Family History Medical History Relation Name Comments Stroke Brother Diabetes Father Cancer Mother Relation Name Status Comments Brother Father Mother Social History Tobacco Use Types Packs/Day Years Used Date Smoking Tobacco: Former Cigarettes Q uit: 02/15/2004 Smokeless Tobacco: Former PHQ-2 Answer Date Recorded PHQ-2 Score 0 05/18/2019 Sex and Gender Information Value Date Recorded Sex Assigned at Not on file Legal Sex Male 4:20 PM CDT Gender Identity Not on file Sexual Orientation Not on file Last Filed Vital Signs Vital Sign Reading Time Taken Comments Blood Pressure 150/84 07/08/2019 11:49 AM CONFIDENTIAL SECRETARY Pulse 70 07/08/2019 11:49 AM CONFIDENTIAL SECRETARY Temperature 37 C (98.6 F) 07/08/2019 11:49 AM CONFIDENTIAL SECRETARY Respiratory Rate - - Oxygen Saturation 97% 07/08/2019 11:49 AM CONFIDENTIAL SECRETARY Inhaled Oxygen Concentration - - Weight 110.2 kg (243 lb) 07/08/2019 11:49 AM CONFIDENTIAL SECRETARY Height 182.9 cm (6') 06/12/2017 11:03 AM CDT Body Mass Index 32.96 06/12/2017 11:03 AM CDT Plan of Treatment Health Maintenance Due Date Last Done Comments Hepatitis C Virus (HCV) Screening 1950 TdaP Immunization 1950 Zoster Immunization (2 of 3) 07/12/2014 05/17/2014 Respiratory Syncytial Virus (RSV) Immunization (Adult) (1 - 1-dose 75+ series) 2023 SARS-COV-2 Immunization ( - 2023- season) 2024 Influenza Immunization (#1) 2025 DTaP/Tdap/Td Immunization Discontinued 03/24/2007 AAA Screening Ultrasound Discontinued 03/12/2016 Pneumococcal Immunization (5 0+ years) Completed 06/26/2017, 01/20/2016 Pneumococcal Immunization Combined Discontinued 06/26/2017, 01/20/2016 Hepatitis B Immunization Aged Out No longer eligible based on patient's age to complete this topic Human Papillomavirus (HPV) Immunization Aged Out No longer eligible based on patient's age to complete this topic Meningococcal Immunization (ACWY) Aged Out No longer eligible based on patient's age to complete this topic Rotavirus Immunization Aged Out No lo nger eligible based on patient's age to complete this topic Insurance [employer] Care Teams Supervisor Rolling Room Relationship Specialty Start Date End Date Roz Butler MD [address] [place] [address] PCP - General Family Medicine 09/12/16
--- OUTSIDE RECORDS SUMMARY | 2025-03-21 12:41 | XMS_ITS | Encounter Summary ---
Author Organization [facility] Address [address] [place] [address] Care Team Providers Care Special Procedures Nurse Name Role Phone Roz Butler MD Primary Care Provider Travis Avila MD Unavailable [phone] Encounter Details Date Type Department Care Team (Late st Contact Info) Description 10/19/2020 Abstract [facility] [address] Jimy Houston MA Social History Tobacco Use Types Packs/Day Years Used Date Smoking Tobacco: Former Cigarettes 1 37 1 966 - 2003 Smokeless Tobacco: Never Alcohol Use Standard Drinks/Week [...] Sex Assigned at Male 09/20/2024 2: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. [facility] [address] [place] [address] documented as of this encounter Procedures Procedure Name Priority Date/Time Associated Diagnosis Comments CBC (OUTSIDE LAB) Routine 06/04/2021 COMPREHENSIVE METABOLIC PANEL Routine 06/04/2021 LIPID PANEL Routine 06/04/2021 HEMOGLOBIN, GLYCOSYLATED Routine 06/04/2021 THYROXINE, FREE (FT4) Routine 06/04/2021 THYROID STIM HORMONE TSH Routine 06/04/2021 CBC (OUTSIDE LAB) Routine 06/26/2020 COMPREHENSIVE METABOLIC PANEL Routine 06/26/2020 LIPID PANEL Routine 06/26/2020 HEMOGLOBIN, GLYCOSYLATED Routine 06/26/2020 THYROXINE, FREE (FT4) Routine 06/26/2020 THYROID STIM HORMONE TSH Routine 06/26/2020 documented in this encounter Results * CBC (OUTSIDE LAB) (06/04/2021) WBC 5.4 HGB 16.6 HCT 49.2 PLT 174 06/04/2021 [facility] Abstract LAB-OUTSIDE/ABSTRACTED Final Result * COMPREHENSIVE METABOLIC PANEL (06/04/2021) Pathologist [facility] SODIUM S/P/B 141 POTASSIUM S/P/B 4.4 CO2 21 CHLORIDE S/P/B 106 GLUCOSE 92 mg/dL CALCIUM S/P/B 8.9 BUN 19 CREATININE S/P/B 0.97 0.7 - 1.3 EGFR AFR. AMER. 90 <=90 EGFR NON-AFR. AMER. 78 <=90 ALKALINE PHOSPHATASE S/P/B 81 ALT 47 AST 38 BILIRUBIN TOTAL S/P/B 0.8 ALBUMIN S/P/B 4.2 3.5 - 5.0 TOTAL PROTEIN S/P/B 7.1 GLOBULIN 2.9 06/04/2021 [facility] Abstract LABORATORY Final Result * THYROXINE, FREE (FT4) (06/04/2021) Pathologist [facility] FREE T4 0.93 06/04/2021 [facility] Abstract LABORATORY Final Result * HEMOGLOBIN, GLYCOSYLATED (06/04/2021) Pathologist [facility] HGB A1C 5.8 % 06/04/2021 [facility] Abstract LABORATORY Final Result * LIPID PANEL (06/04/2021) Pathologist [facility] CHOLESTEROL 99 HDL 37 TRIGLYCERIDES 115 LDL (CALCULATED) 41 06/04/2021 [facility] Abstract LABORATORY Final Result * THYROID STIM HORMONE, TSH (06/04/2021) [facility] TSH 1.490 06/04/2021 [facility] Abstract LABORATORY Final Result * THYROID STIM HORMONE, TSH (06/26/2020) Pathologist [facility] TSH 1.780 06/26/2020 [facility] Abstract LABORATORY Final Result * THYROXINE, FREE (FT4) (06/26/2020) Pathologist [facility] FREE T4 0.82 06/26/2020 [facility] Abstract LABORATORY Final Result * HEMOGLOBIN, GLYCOSYLATED (06/26/2020) Pathologist [facility] HGB A1C 5.6 % 06/26/2020 [facility] Abstract LABORATORY Final Result * LIPID PANEL (06/26/2020) Pathologist [facility] CHOLESTEROL 109 HDL 28 TRIGLYCERIDES 412 LDL (CALCULATED) 24 06/26/2020 [facility] Abstract LABORATORY Final Result * (ABNORMAL) COMPREHENSIVE METABOLIC PANEL (06/26/2020) Pathologist [facility] SODIUM S/P/B 143 POTASSIUM S/P/B 3.9 CO2 23 CHLORIDE S/P/B 107 GLUCOSE 103 mg/dL CALCIUM S/P/B 8.9 BUN 14 CREATININE S/P/B 0.91 0.7 - 1.3 EGFR AFR. AMER. 98(A) <=90 EGFR NON-AFR. AMER. 84 <=90 ALKALINE PHOSPHATASE S/P/B 91 ALT 40 AST 39 BILIRUBIN TOTAL S/P/B 0.7 ALBUMIN S/P/B 3.8 3.5 - 5.0 TOTAL PROTEIN S/P/B 6.8 GLOBULIN 3.0 06/26/2020 [facility] Abstract LABORATORY Final Result * CBC (OUTSIDE LAB) (06/26/2020) Pathologist [facility] WBC 6.9 HGB 16.7 HCT 49.2 PLT 217 06/26/2020 [facility] Abstract LAB-OUTSIDE/ABSTRACTED Final Result documented in this encounter Visit Diagnoses Not on filedocumented in this encounter Care Teams Special Procedures Nurse Relationship Specialty Start Date End Date Roz Butler MD PCP - General FAMILY PRACTICE 08/09/19 Travis Avila MD [facility]. [facility] [address] [place] [address] [place] [employer] CARDIOVASCULAR DISEASE 08/19/19 documented as of this encounter
--- OUTSIDE RECORDS SUMMARY | 2025-03-21 12:41 | XMS_ITS | Clinical Summary ---
Author Organization [facility] Address [address] [place] [address] Care Team Providers Care Insurance Executive Name Role Phone Roz Butler MD Primary Care Provider [phone] Source Comments [facility],non-owned Affiliates and Associated Physician Practices is amultiple site organization consisting of ambulatory clinics and hospital sitesin [place], [place], [place] and [place]. This disclosure is being madepursuant to the Care Everywhere program and may not contain all information available regarding this patient. Last updated 18.[facility] Allergies Active Allergy Reactions Criticality Noted Date Comments Penicillins Other 02/15/2016 Passes out Medications * Be aware that medications may not be up to date on this document. Alwaysverify current medications with the patient. aspirin EC (ECOTRIN) 81 MG tablet Take 81 mg by mouth once daily Active atorvastatin (LIPITOR) 40 MG tablet Take 1 tablet by mouth once daily 02/07/2018 Active clopidogrel (PLAVIX) 75 MG tablet Take 75 mg by mouth once daily Active lisinopril (PRINIVIL; ZESTRIL) 20 MG tablet Take 1 tablet by mouth once daily 02/07/2018 Active Active Problems Problem Noted Date Diagnosed Date High serum testosterone 04/01/2018 Hyperlipidemia 04/01/2018 Hypertension 04/01/2018 Carotid artery disease 04/01/2018 Lesion of spleen 02/29/2016 Polycythemia 02/15/2016 CVA (cerebral vascular accident) 05/18/2014 Family History Medical History Relation Name Comments Arthritis - Rheumatoid Father Hypertension Father Arthritis - Rheumatoid Mother Cancer - Other Mother Congenital Heart defect Paternal Grandmother CVA Sister Relation Name Status Comments Father Mother Paternal Grandmother Sister Social History Tobacco Use Types Packs/Day Years Used Date Smoking Tobacco: Never Smokeless Tobacco: Never Alcohol Use Standard Drinks/Week Comments No 0 (1 standard drink = 0.6 oz pur e alcohol) Sex and Gender Information Value Date Recorded Sex Assigned at Not on file Legal Sex Male 8:49 AM CDT Gender Identity Not on file Sexual Orientation Not on file Last Filed Vital Signs Vital Sign Reading Time Taken Comments Blood Pressure 160/80 04/01/2018 2:42 PM CDT Pulse 85 04/01/2018 2:42 PM CDT Temperature 36.6 C (97.9 F) 04/01/2018 2:42 PM CDT Respiratory Rate - - Oxygen Saturation 95% 04/01/2018 2:42 PM CDT Inhaled Oxygen Concentration - - Weight 112 kg (246 lb 14.4 oz) 04/01/2018 2:42 P M CDT Height 177 cm (5' 9.69) 04/01/2018 2:42 PM CDT Body Mass Index 35.75 04/01/2018 2:42 PM CDT Plan of Treatment Health Maintenance Due Date Last Done Comments HEPATITIS C SCREENING 10/04/1968 DTAP/TDAP/TD VACCINES (1 - Tdap) 1967 PNEUMOCOCCAL VACCINE 50+ (1 of 1 - PCV) 1998 ZOSTER VACCINE (1 of 2) 1998 SCREENING FOR DIABETES 04/01/2018 Respiratory Syncytial Virus (RSV) Vaccine Pt: or over 60 yrs (1 - 1-dose 75+ series) 2023 COVID-19 VACCINE ( - 2023-2 5 season) 2024 DEPRESSION SCREENING 09/01/2024 INFLUENZA VACCINE (#1) 2025 HEPATITIS B VACCINE Aged Out No longe r eligible based on patient's age to complete this topic HIB VACCINE Aged Out No longer eligi ble based on patient's age to complete this topic HPV VACCINE Aged Out No longer eligi ble based on patient's age to complete this topic MENINGOCOCCAL (Group B) VACC INE SHARED DECISION-MAKING Aged Out No longer eligibl e based on patient's age to complete this topic MENINGOCOCCAL GROUPS A/C/Y/W VACCINE Aged Out No longer eligible b ased on patient's age to complete this topic Insurance MEDICARE Care Teams Insurance Executive Relationship Specialty Start Date End Date Roz Butler MD [address] [place] [address] PCP - General 04/01/18
--- NOTE | 2025-03-21 15:00 | NEURO_ITS ---
Impression: # Complains of right hand numbness. Non-diabetic. ? # Moderate right Carpal Tunnel Syndrome. ? # No ulnar neuropathy. ? # Mildly abnormal Needle/EMG exam. Nerve Conduction Studies ?Stim Site NR Peak (ms) P-T Amp (?V) Site1 Site2 Delta-P (ms) Dist (cm) [place] (m/s) Right Median Anti Sensory (2-3nd Digit) Wrist ? 7.7 21.2 Wrist 2-3nd Digit 7.7 14.0 18 Wrist ? 7.5 4.1 Wrist 2-3nd Digit 7.7 14.0 18 Right Radial Anti Sensory (Base 1st Digit) Wrist ? 2.2 20.7 Wrist Base 1st Digit 2.2 0.0 Right Ulnar Anti Sensory (5th Digit) Wrist ? 2.5 50.6 Wrist 5th Digit 2.5 14.0 56 ?Stim Site NR Onset (ms) O-P Amp (mV) Site1 Site2 Delta-0 (ms) Dist (cm) [place]fego (m/s) Right Median Motor (Abd Poll Brev) Wrist ? 6.5 1.0 Elbow Wrist 3.3 29.0 88 Elbow ? 9.8 1.1 Right Ulnar Motor (Abd Dig Minimi) Wrist ? 2.7 6.3 A Elbow Wrist 5.2 30.0 58 A Elbow ? 7.9 5.2 B Elbow Wrist 3.6 21.0 58 B Elbow ? 6.3 5.9 Electromyography ?Side Muscle Nerve Root Ins Act Fibs Amp Dur Recrt Comment Right 1stDorInt Ulnar C8-T1 Nml Nml Nml Nml Nml Right Ext Indicis Radial (Post Int) C7-8 Nml Nml Nml Nml Nml Right Ext Digitorum Radial (Post Int) C7-8 Nml Nml Nml Nml Nml Right BrachioRad Radial C5-6 Nml Nml Nml Nml Nml Right PronatorTeres Median C6-7 Nml Nml Nml Nml Nml Right Abd Poll Brev Median C8-T1 Nml Nml Decr >12ms +1 Right ABD Dig Min Ulnar C8-T1 Nml Nml Nml Nml Nml Right FlexPolLong Median (Ant Int) C7-8 Nml Nml Nml Nml Nml Right Abd Poll Long Radial (Post Int) C7-8 Nml Nml Nml Nml Nml
== END 2025-03-21 12:34 | disposition home or self-care (01) ==
PROVIDERS: PCP Family Medicine; Visit Provider Family Medicine
DX: R20.0 Anesthesia of skin (principal); G56.01 Carpal tunnel syndrome, right upper limb
CPT/HCPCS: 95886; 95909